=== PATIENT | female | born 1960 | race Hispanic/Latino ===

== ENCOUNTER 2023-02-08 06:51 | Day surgery (SDC) | payer BC, OTHER ==
--- NOTE | 2023-02-06 19:12 | EKG ---
Test Date: 2023-02-05 Test Time: 11:19:00 House Parent: SHAISTA MEASUREMENT RESULTS: Intervals: Rate: 57 PA: 148 QRSD: 86 QT: 408 QTc: 397 [place]: P: 64 PA: 148 QRS: 81 T: -84 INTERPRETIVE STATEMENTS: Sinus bradycardia T wave abnormality, consider inferior ischemia T wave abnormality, consider anterolateral ischemia Abnormal ECG Compared to ECG 12/15/2006 08:30:32 T-wave abnormality now present Possible ischemia now present Electronically Signed On 02-06-23 19:10:15 CDT by Kristopher Lowry
[2023-02-08] MEDS ORDERED: Ringers Lactate 1,000 ML IV ONE (07:19)
[2023-02-08] MEDS ORDERED: propofoL 200 MG/20 ML VIAL IV ONE (07:39)
[2023-02-08] MEDS ORDERED: FENTANYL CITR 100 MCG/2 ML ONE (07:39)
[2023-02-08] MEDS ORDERED: MIDAZOLAM HCL 2 MG/2 ML INJ ONE (07:40)
[2023-02-08] MEDS ORDERED: ONDANSETRON 4 MG/2 ML VIAL ONE (07:40)
[2023-02-08] MEDS ORDERED: LIDOCAINE 2% MPF 5 ML VIAL ONE (07:40)
[2023-02-08] MEDS ORDERED: OFLOXACIN OPH 0.3%-10 ML BTL ONE (08:15)
[2023-02-08] MEDS ORDERED: EPHEDRINE SULF 50 MG/ML VIAL ONE (08:37)
[2023-02-08] MEDS ORDERED: OXYMETAZOLINE HCL 0.05% 15ML NAS ONE (09:20)
[2023-02-08] MEDS ORDERED: LIDOCAINE HCL/EPINEPHRINE 20 ML MDV ONE (09:20)
[2023-02-08] MEDS ORDERED: EPINEPHRINE/PF 1 MG/ML AMP ONE (09:20)
[2023-02-08] MEDS ORDERED: BACITRACIN OINTMENT 14 GM TUBE TOP ONE (09:20)
[2023-02-08] MEDS ORDERED: KETOROLAC 30 MG/ML INJ ONE (09:36)
--- NOTE | 2023-02-08 09:48 | P.OP ---
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 She is placed under general anesthesia via LMA. The head of bed was turned 90 degrees for better exposure of the right ear. The right ear was examined under an operating microscope and presence of a moderate central perforation was confirmed. There was notable tympanic sclerosis of the eardrum and middle ear. A small amount of cerumen was removed from the canal. The canal was treated with Betadine taking care to avoid extravasation into the middle ear. Ear canal was injected with 1% lidocaine under microscope visualization along the bony cartilaginous junction. The in behind the ear was shaved approximately 1 cm and the hair taped out of the way. Additional injection into the planned graft donor site using 1% lidocaine epinephrine was made. A total of 2.5 mL of lidocaine were used during the initial portion of the preparations. A cottonball was placed at the meatus and the external ear and surrounding area were prepped with Betadine and draped in the standard fashion for otologic surgery. A 3 cm incision was made in the postauricular region and the skin and soft tissues were divided. A fascial graft was harvested, pressed and set aside to dry. The ear canal was examined using a 6.5 mm speculum. The perforation was rimmed using a Townsend needle, cup forceps and Sidney elevators in order to provide a raw surface and improve adherence of the graft. A round knife was used to create a an incision along the bony cartilaginous junction of the ear canal and the Le elevators were used to elevate the tympanomeatal flap. The bony and fibrous annulus was identified. The annulus was carefully elevated revealing the middle ear space. Careful examination revealed no significant squamous debris, granulation or other obvious evidence of cholesteatoma. The middle ear was then filled with ofloxacin soaked Gelfoam in order to create a bed of support. After adequate packing of the middle ear, the previously harvested graft was positioned using alligator forceps, a Le elevator, and Townsend ne edle. Care was taken to ensure that the graft completely covered the perforation. After positioning, the tympanomeatal flap was replaced into its anatomic position and the ear canal was carefully filled with Floxin soaked Gelfoam. The postauricular incision was then inspected and there was no significant bleeding. The incision was closed in layered fashion using 4-0 Vicryl deep sutures and fast absorbing gut in a running fashion for the epidermal layers. Standard mastoid dressing was applied and the patient was returned to care of anesthesia for awakening extubation in the operating room which proceeded without difficulty. The patient will be discharged home later today with standard postoperative instructions and follow-up with Dr. Saab in 1 month. Prescription with 3 refills for ofloxacin was sent to the patient's pharmacy to be used continuously until her follow-up appointment. Complications: None Fluids & blood products: 700 mL crystalloid Transferred to: Recovery Room Condition: Good
[2023-02-08 10:39] VITALS: BP 123/52; TEMP 97; O2SAT 98
== END 2023-02-08 11:04 | disposition home or self-care (01) ==
LOC: OR 06:51
PROVIDERS: ATTEND Otolaryngology
PROC: 0JB00ZZ Excision of Scalp Subcutaneous Tissue and Fascia, Open Approach (ICD-10-PCS; 2023-02-08)
PROC: 0JR007Z Replacement of Scalp Subcutaneous Tissue and Fascia with Autologous Tissue Substitute, Open Approach (ICD-10-PCS; 2023-02-08)
PROC: 09R707Z Replacement of Right Tympanic Membrane with Autologous Tissue Substitute, Open Approach (ICD-10-PCS; principal; 2023-02-08 08:30)
DX: H72.01 Central perforation of tympanic membrane, right ear (principal); H90.6 Mixed conductive and sensorineural hearing loss, bilateral
CPT/HCPCS: 69631; 93005; 15769 ×2; J2704; J2001; J2250; J3010; J2405; J7120; J0171